=== PATIENT | female | born 1975 | race American Indian/Alaskan Native ===

== ENCOUNTER 2017-03-05 05:41 | Emergency (ER) | payer SELFPAY ==
--- NOTE | 2017-03-05 07:03 | Cat Scan Report ---
FINAL REPORT EXAM: CT HEAD/BRAIN W/O CONTRAST. HISTORY: Ceiling fell on patient. TECHNIQUE: Unenhanced axial CT images of the brain were obtained. No prior studies are available for comparison. FINDINGS: The cortical sulci and ventricles are within normal limits for patient's age. There is no extra-axial fluid collection, mass, mass effect, midline shift, hydrocephalus, or acute intracranial hemorrhage. The visualized paranasal sinuses and mastoid air cells are clear. There is no skull fracture or other osseous abnormality. IMPRESSION: No fracture or acute intracranial abnormality.
--- NOTE | 2017-03-05 07:10 | Cat Scan Report ---
FINAL REPORT EXAM: CT CERVICAL SPINE W/O CONTRAST HISTORY: Ceiling fell on patient. TECHNIQUE: Unenhanced axial CT images of the cervical spine were obtained. Coronal and sagittal reformatted images were also obtained. No prior studies are available for comparison. FINDINGS: The cervical vertebral bodies demonstrate normal height and morphology. There is straightening of the normal cervical lordosis, which is nonspecific and may be due to patient positioning and/or muscle spasm. There is no fracture or spondylolisthesis. The prevertebral soft tissues unremarkable. There is mild loss of disc height at C5-6, where there is associated mild posterior marginal spurring, eccentric to the left. There is no significant central stenosis or neural foraminal narrowing. There is no discrete mass or nodule seen in the thyroid gland. The visualized lung apices are clear. IMPRESSION: Nonspecific straightening of the normal cervical lordosis, with no fracture or spondylolisthesis.
[2017-03-05] MEDS ORDERED: TORADOL IM ONE (08:44)
--- NOTE | 2017-03-05 09:03 | Emergency Department Report ---
ED Trauma HPI - General Chief Complaint: Multiple Trauma Stated Complaint: SHOULDER/BACK PAIN Time Seen by Provider: 03/05/17 07:53 - History of Present Illness Initial Comments: 42-year-old female who had a wet roof fall into her. The roof struck her on the right shoulder. She did not lose consciousness. She has some mild neck pain. In addition she complains of some right shoulder pain. She has some limited range of motion due to pain. Her headache is diffuse in nature there is no visible trauma on her head. Occurred: just prior to arrival Severity: moderate Pain Location: upper extremity Method of Injury: direct blow Loss of Consciousness: no loss of consciousness Associated Symptoms (Fall): denies symptoms Allergies/Adverse Reactions: Allergies No Known Allergies Allergy (Unverified 03/05/17 05:52) Home Medications: Ambulatory Orders Cyclobenzaprine [Flexeril 10 MG TAB] 10 mg PO BID #20 tablet 03/05/17 Ibuprofen [Motrin] 600 mg PO Q8H PRN #30 tablet 03/05/17 ED Review of Systems ROS: Stated complaint: SHOULDER/BACK PAIN Other details as noted in HPI Comment: All other systems reviewed and negative Constitutional: denies: chills, fever Eyes: denies: eye pain, eye discharge, vision change ENT: denies: ear pain, throat pain Respiratory: denies: cough, shortness of breath, wheezing Cardiovascular: denies: chest pain, palpitations Endocrine: no symptoms reported Gastrointestinal: denies: abdominal pain, nausea, diarrhea Genitourinary: denies: urgency, dysuria, discharge Musculoskeletal: arthralgia. denies: back pain, joint swelling Skin: denies: rash, lesions Neurological: denies: headache, weakness, paresthesias Psychiatric: denies: anxiety, depression Hematological/Lymphatic: denies: easy bleeding, easy bruising ED Past Medical Hx - Past Medical History Previous Medical History?: Yes Hx Pulmonary Embolism: Yes (2016 off Coumadin x 6 months) - Surgical History Past Surgical History?: Yes Hx Cholecystectomy: Yes - Family History Family history: no significant - Social History Smoking Status: Current Every Day Smoker - Medications Home Medications: Home Medications Medication Instructions Recorded Confirmed Last Taken Type Cyclobenzaprine [Flexeril 10 MG 10 mg PO BID #20 tablet 03/05/17 Unknown Rx TAB] Ibuprofen [Motrin] 600 mg PO Q8H PRN #30 tablet 03/05/17 Unknown Rx ED Physical Exam - General Limitations: No Limitations General appearance: alert, in no apparent distress - Head Head exam: Present: atraumatic, normocephalic - Eye Eye exam: Present: normal appearance - ENT ENT exam: Present: mucous membranes moist - Neck Neck exam: Present: normal inspection, tenderness (no midline tenderness. Tenderness in the right trapezius muscle) - Respiratory Respiratory exam: Present: normal lung sounds bilaterally. Absent: respiratory distress - Cardiovascular Cardiovascular Exam: Present: regular rate, normal rhythm. Absent: systolic murmur, diastolic murmur, rubs, gallop - GI/Abdominal GI/Abdominal exam: Present: soft, normal bowel sounds - Extremities Exam Extremities exam: Present: normal inspection - Back Exam Back exam: Present: normal inspection - Neurological Exam Neurological exam: Present: alert, oriented X3 - Psychiatric Psychiatric exam: Present: normal affect, normal mood - Skin Skin exam: Present: warm, dry, intact, normal color. Absent: rash ED Course Vital Signs 03/05/17 03/05/17 05:55 08:52 Temperature 99.5 F Pulse Rate 88 Respiratory 18 16 Rate Blood Pressure 134/110 O2 Sat by Pulse 100 Oximetry ED Medical Decision Making - Radiology Data Radiology results: report reviewed, image reviewed - Medical Decision Making 42-year-old female here with complaint of right shoulder pain after roof struck patient in arm. She had no loss consciousness. She has some mild trapezius muscle spasm. Plan to treat her with NSAIDs and discharged home. Head CT and neck CT are both negative. X-rays of both negative as well. Portions of this chart were dictated with dictation software. There may be dictation errors contained within this note. Critical care attestation.: If time is entered above; I have spent that time in minutes in the direct care of this critically ill patient, excluding procedure time. ED Disposition Clinical Impression: Shoulder contusion, Muscle spasm Disposition: DC-01 TO HOME OR SELFCARE Is pt being admited?: No Condition: Stable Instructions: Muscle Spasm (ED), Shoulder Sprain (ED) Prescriptions: Cyclobenzaprine [Flexeril 10 MG TAB] 10 mg PO BID #20 tablet Ibuprofen [Motrin] 600 mg PO Q8H PRN #30 tablet PRN Reason: Pain Referrals: PRIMARY CARE,MD [Primary Care Provider] - 3-5 Days
--- NOTE | 2017-03-05 09:38 | XRay Report ---
Right clavicle 2 views: History: Ceiling fell on patient. Right clavicle pain. Findings: No fracture right clavicle. A.c. joint appears unremarkable. Impression: No evidence of fracture.
--- NOTE | 2017-03-05 09:39 | XRay Report ---
Right shoulder 3 views: History: Ceiling fell on patient right shoulder pain. Findings: No definite bony or articular abnormality the glenohumeral joint. Mild arthritic changes at the a.c. joint. Impression: No evidence of fracture or dislocation.
[2017-03-05 09:53] VITALS: BP 138/98
== END 2017-03-05 09:35 | disposition home or self-care (01) ==
LOC: ED 05:41
DX: S40.011A Contusion of right shoulder, initial encounter (principal); X58.XXXA Exposure to other specified factors, initial encounter; Y93.9 Activity, unspecified; Y92.9 Unspecified place or not applicable; Y99.9 Unspecified external cause status; M62.838 Other muscle spasm; F17.200 Nicotine dependence, unspecified, uncomplicated
CPT/HCPCS: 70450; 72125; 73000; 73030; 96372; 99284; J1885